=== PATIENT | female | born 1960 | race Hispanic/Latino ===

== ENCOUNTER 2017-03-07 12:34 | Day surgery (SDC) | payer MEDICARE, OTHER ==
[2017-03-01 10:40] VITALS: BMI 30.2
[2017-03-07 13:02] VITALS: O2SAT 98
[2017-03-07] MEDS ORDERED: Propofol 10 mg/ml Inj (20 ML) ONE ×2 (13:35→14:02)
[2017-03-07] MEDS ORDERED: Lidocaine 1% Inj (20ml) ONE (13:35)
[2017-03-07] MEDS ORDERED: Lactated Ringer's 1,000 ML IV SCH (14:30)
[2017-03-07 15:24] VITALS: BP 106/72; PULSE 67; RESP 16; TEMP 98
== END 2017-03-07 15:56 | disposition home or self-care (01) ==
LOC: ENDO 12:34
PROVIDERS: ATTEND Internal Medicine
DX: D12.2 Benign neoplasm of ascending colon (principal); D12.3 Benign neoplasm of transverse colon; D12.5 Benign neoplasm of sigmoid colon; K62.1 Rectal polyp; K64.8 Other hemorrhoids; K59.03 Drug induced constipation; F43.10 Post-traumatic stress disorder, unspecified; G43.909 Migraine, unspecified, not intractable, without status migrainosus; M51.26 Other intervertebral disc displacement, lumbar region; T50.905A Adverse effect of unspecified drugs, medicaments and biological substances, initial encounter
CPT/HCPCS: 45380; 45381; 45385; 88305; J2704; J7040; J7120

== ENCOUNTER 2017-04-17 14:59 | Emergency (ER) | payer MEDICARE ==
[2017-04-17 14:59] VITALS: BMI 30.2
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
[2017-04-17] MEDS ORDERED: Sodium Chloride 0.9% 1,000 ML IV STA (15:46)
[2017-04-17 16:17] LABS: ADD MANUAL DIFF? NO
[2017-04-17 16:23] LABS: BASO # 0.02 K/mm3 (0.0-2.0); BASO % 0.3 % (0.0-3.0); EOS # 0.2 (0.0-0.7); EOS % 2.5 % (1.5-5.0); GRAN # 2.61 (1.4-6.5); GRAN % 43.2 % (50.0-68.0); HEMATOCRIT 41.2 % (36.0-48.0); LYMPH # 2.8 (1.2-3.4); LYMPH % 46.4 % (22.0-35.0); MEAN CELL VOLUME 87.8 fL (80.0-105.0); MEAN CORPUSCULAR HEMOGLOBIN 30.5 pg (25.0-35.0); MEAN CORPUSCULAR HGB CONC 34.7 g/dl (31.0-37.0); MEAN PLATELET VOLUME 10.4 fl (7.0-11.0); MONO # 0.5 (0.1-0.6); MONO % 7.6 % (1.0-6.0); PLATELET COUNT 272 10^3/uL (120.0-450.0); RED CELL DISTRIBUTION WIDTH 11.6 % (11.5-14.5)
[2017-04-17 16:27] LABS: ALB/GLOB RATIO 1.4 (1.1-1.8); ALKALINE PHOSPHATASE 111 U/L (38-133); ALT/SGPT 36 U/L (7-56); AST/SGOT 36 U/L (15-39); BILIRUBIN,TOTAL 0.7 mg/dL (0.2-1.3); BLOOD UREA NITROGEN 21 mg/dL (7-21); CALCIUM 9.2 mg/dL (8.4-10.5); CARBON DIOXIDE 31 mmol/L (21-33); CHLORIDE 99 mmol/L (98-107); GFR AFRICAN-AMERICAN > 60; GLUCOSE,RANDOM 93 mg/dL (70-110); MAGNESIUM 1.9 mg/dL (1.7-2.2); POTASSIUM 3.5 mmol/L (3.6-5.0); SODIUM 138 mmol/L (132-148); TOTAL PROTEIN 6.6 g/dL (5.8-8.3)
[2017-04-17 18:13] VITALS: TEMP 98
--- NOTE | 2017-04-17 18:46 | CT ---
PROCEDURE: CT HEAD WITHOUT CONTRAST. HISTORY: worsening dizziness COMPARISON: Comparison is made to the previous study dated 05/18/2013 TECHNIQUE: Axial computed tomography images were obtained through the head/brain without intravenous contrast. Radiation dose: Total exam DLP = 725.84 mGy-cm. This CT exam was performed using one or more of the following dose reduction techniques: Automated exposure control, adjustment of the mA and/or kV according to patient size, and/or use of iterative reconstruction technique. FINDINGS: HEMORRHAGE: No intracranial hemorrhage. BRAIN: No mass effect or edema. No atrophy or chronic microvascular ischemic changes. VENTRICLES: Unremarkable. No hydrocephalus. CALVARIUM: Unremarkable. PARANASAL SINUSES: Unremarkable as visualized. No significant inflammatory changes. MASTOID AIR CELLS: Unremarkable as visualized. No inflammatory changes. OTHER FINDINGS: None. IMPRESSION: No evidence of acute intracranial hemorrhage intracranial collection mass effect or midline shift.
[2017-04-17 19:32] VITALS: BP 111/66; PULSE 74; RESP 17; O2SAT 99
--- NOTE | 2017-04-18 23:26 | CARD ---
APPROVED REPORT EKG Measurement Heart [id number] SD [id number] <Conclusion> Normal sinus rhythm Normal ECG
== END 2017-04-17 19:32 | disposition home or self-care (01) ==
LOC: ED 14:59
DX: R42 Dizziness and giddiness (principal); Z87.891 Personal history of nicotine dependence
CPT/HCPCS: 70450; 80053; 83735; 85025; 93005; 96361; 96374; 99285; J2405; J7040

== ENCOUNTER 2017-12-12 18:27 | Emergency (ER) | payer MEDICARE, OTHER ==
[2017-12-12 18:57] VITALS: BMI 27.9
[2017-12-12 19:03] VITALS: BP 116/85; PULSE 100; RESP 18; TEMP 98; O2SAT 98
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
== END 2017-12-12 22:39 | disposition home or self-care (01) ==
LOC: ED 18:27
DX: R51 Headache (principal); S16.1XXD Strain of muscle, fascia and tendon at neck level, subsequent encounter; V43.52XD Car driver injured in collision with other type car in traffic accident, subsequent encounter
CPT/HCPCS: 70450; 72125; 96372; 99284; J1885

== ENCOUNTER 2018-10-16 10:32 | Inpatient (IN) | payer MEDICARE, OTHER ==
[2018-10-16 10:43] VITALS: BMI 26.4
[2018-10-16] MEDS ORDERED: Alum-Mag Hydrox-Simethicone Susp (30 mL) PO STA (10:53)
[2018-10-16] MEDS ORDERED: Sodium Chloride 0.9% 1,000 ML IV STA ×2 (10:53→13:58)
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
[2018-10-16] MEDS ORDERED: Albuterol-Ipratrop 3 mg / 0.5 (3 ml) UD IH STA (11:16)
[2018-10-16 11:42] LABS: BASO # 0.03 K/mm3 (0.0-2.0); BASO % 0.4 % (0.0-3.0); EOS # 0.3 (0.0-0.7); EOS % 4.5 % (1.5-5.0); GRAN # 3.28 (1.4-6.5); GRAN % 47.9 % (50.0-68.0); HEMOGLOBIN 15.8 g/dL (12.0-16.0); LYMPH # 2.7 (1.2-3.4); LYMPH % 39.8 % (22.0-35.0); MEAN CELL VOLUME 91.2 fl (80.0-105.0); MEAN CORPUSCULAR HEMOGLOBIN 30.9 pg (25.0-35.0); MEAN CORPUSCULAR HGB CONC 33.9 g/dl (31.0-37.0); MEAN PLATELET VOLUME 10.8 fl (7.0-11.0); MONO # 0.5 (0.1-0.6); MONO % 7.4 % (1.0-6.0); RBC 5.11 10^6/uL (3.5-6.1); RED CELL DISTRIBUTION WIDTH 11.9 % (11.5-14.5); WHITE BLOOD COUNT 6.9 10^3/uL (4.5-11.0)
[2018-10-16 11:43] LABS: VENOUS BLOOD GAS BASE EXCESS 8.2 mmol/L (0.0-2.0); VENOUS BLOOD GAS PO2 42 mm/Hg (30-55); VENOUS BLOOD PH 7.32 (7.32-7.43)
[2018-10-16 11:53] LABS: URINE APPEARANCE SLIGHT-CLOUDY (CLEAR); URINE BILIRUBIN NEGATIVE (NEGATIVE); URINE BLOOD NEGATIVE (NEGATIVE); URINE COLOR YELLOW (YELLOW); URINE GLUCOSE (UA) NEGATIVE (NEGATIVE); URINE LEUKOCYTE ESTERASE SMALL Leu/uL (NEGATIVE); URINE PROTEIN NEGATIVE mg/dL (<30 mg/dL)
[2018-10-16 11:54] LABS: ALB/GLOB RATIO 1.4 (1.1-1.8); ALBUMIN 4.3 g/dL (3.0-4.8); ALT/SGPT 38 U/L (7-56); AST/SGOT 41 U/L (14-36); BLOOD UREA NITROGEN 22 mg/dL (7-21); CALCIUM 9.3 mg/dL (8.4-10.5); GFR NON-AFRICAN AMERICAN > 60; LIPASE 69 U/L (23-300)
[2018-10-16 11:57] LABS: INR 0.97; PARTIAL THROMBOPLASTIN TIME 30.2 Seconds (25.1-36.5); PROTHROMBIN TIME 11.2 SECONDS (9.4-12.5)
--- NOTE | 2018-10-16 12:03 | RAD ---
Date of service: 10/16/2018 HISTORY: abdominal pain r/o free air COMPARISON: 07/23/2015 FINDINGS: LUNGS: The lungs are well inflated and clear. PLEURA: No pleural effusions or pneumothorax. CARDIOVASCULAR: The heart is normal in size. No aortic atherosclerotic calcification present. OSSEOUS STRUCTURES: Within normal limits for the patient's age. VISUALIZED UPPER ABDOMEN: Normal. OTHER FINDINGS: None. IMPRESSION: No active pulmonary disease.
[2018-10-16 12:04] LABS: TROPONIN I < 0.01 ng/mL
[2018-10-16 12:10] LABS: FREE T4 1.34 ng/dL (0.78-2.19)
[2018-10-16 12:12] LABS: BARBITURATES, UR NEGATIVE (NEGATIVE); BENZODIAZEPINES, UR POSITIVE (NEGATIVE); OPIATES, UR POSITIVE (NEGATIVE); PHENCYCLIDINE, UR NEGATIVE (NEGATIVE)
[2018-10-16 12:24] LABS: URINE BACTERIA SMALL (NEG); URINE RBC 0 - 2 /hpf (0-2)
[2018-10-16 12:31] LABS: URINE HYALINE CAST 0 - 2 /hpf
[2018-10-16] MEDS ORDERED: Naloxone 0.4 mg/ml Inj (Adult) IVP STA (13:03)
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
--- NOTE | 2018-10-16 15:12 | US ---
Date of service: 14.6 10/16/2018 HISTORY: RUQ pain COMPARISON: None. TECHNIQUE: Sonographic evaluation of the abdomen. FINDINGS: LIVER: Measures 14.6 cm. Normal echogenicity of the liver parenchyma. No mass. No intrahepatic bile duct dilatation. GALLBLADDER: There are multiple gallstones. No wall thickening, pericholecystic fluid or positive sonographic Berry's sign. COMMON BILE DUCT: Measures 6.2 mm. No stones. Mild diffuse dilatation. PANCREAS: Unremarkable as visualized. No mass. No ductal dilatation. RIGHT KIDNEY: Measures 9.6cm. Normal echogenicity. No calculus, mass, or hydronephrosis. LEFT KIDNEY: Measures 10.1cm. Normal echogenicity. No calculus, mass, or hydronephrosis. SPLEEN: Normal in size and contour. No mass. AORTA: No aneurysmal dilatation. IVC: Unremarkable. OTHER FINDINGS: None. IMPRESSION: Cholelithiasis. Mild diffuse dilatation of the common bile duct without sonographic evidence for choledocholithiasis.
[2018-10-16] MEDS ORDERED: Influenza Vaccine 60 mcg/0.5 mL SYR (4YR UP) IM ONE (21:33)
[2018-10-16] MEDS ORDERED: Pneumococcal 23-Valent Vaccine IM ONE (21:33)
[2018-10-16] MEDS: Lactated Ringer's 1,000 ML IV SCH (21:35)
[2018-10-17] MEDS: Lactated Ringer's 1,000 ML IV SCH (06:07)
[2018-10-17] MEDS: Pantoprazole 40 mg EC Tab PO SCH (06:07)
[2018-10-17 07:07] LABS: BASO # 0.02 K/mm3 (0.0-2.0); BASO % 0.3 % (0.0-3.0); EOS # 0.2 (0.0-0.7); EOS % 3.8 % (1.5-5.0); GRAN # 2.58 (1.4-6.5); GRAN % 42.9 % (50.0-68.0); HEMOGLOBIN 12.5 g/dL (12.0-16.0); LYMPH # 2.8 (1.2-3.4); LYMPH % 46.4 % (22.0-35.0); MEAN CELL VOLUME 93.4 fl (80.0-105.0); MEAN CORPUSCULAR HEMOGLOBIN 29.6 pg (25.0-35.0); MEAN CORPUSCULAR HGB CONC 31.6 g/dl (31.0-37.0); MONO # 0.4 (0.1-0.6); MONO % 6.6 % (1.0-6.0); RBC 4.23 10^6/uL (3.5-6.1); RED CELL DISTRIBUTION WIDTH 12.1 % (11.5-14.5)
[2018-10-17 07:22] LABS: ALB/GLOB RATIO 1.2 (1.1-1.8); ALBUMIN 2.9 g/dL (3.0-4.8); ALT/SGPT 34 U/L (7-56); AST/SGOT 29 U/L (14-36); BLOOD UREA NITROGEN 19 mg/dL (7-21); CALCIUM 8.3 mg/dL (8.4-10.5); GFR NON-AFRICAN AMERICAN > 60
[2018-10-17] MEDS: HYDROmorphone 0.5 mg/0.5 ml ISec IVP PRN ×2 (08:12→13:51)
--- NOTE | 2018-10-17 08:48 | CP.PCM.APN ---
Subjective - Date & Time of Evaluation Date of Evaluation: 10/17/18 Time of Evaluation: 07:30 - Subjective Subjective: Pt seen and examined at bedside. C/O diffuse discomfort of abd, +pain on palpation. Denies nausea or vomiting. Objective - Vital Signs/Intake and Output Vital Signs (last 24 hours): Temp Pulse Resp BP Pulse Ox 98 F 60 20 82/52 L 92 L 10/16/18 21:50 10/16/18 21:50 10/16/18 21:50 10/16/18 21:50 10/16/18 21:50 Intake and Output: 10/17/18 10/17/18 06:59 18:59 Intake Total 480 Balance 480 - Medications Medications: Current Medications Diazepam (Valium) 10 mg PO BID PRN; Protocol PRN Reason: Anxiety Hydromorphone HCl (Dilaudid) 0.5 mg IVP Q6H PRN PRN Reason: Pain, moderate (4-7) Last Admin: 10/17/18 08:12 Dose: 0.5 mg Lactated Ringer's (Lactated Ringer's) 1,000 mls @ 115 mls/hr IV .Q8H42M NATHANAEL Last Admin: 10/17/18 06:07 Dose: Not Given Mirtazapine (Remeron) 15 mg PO HS [facility] Last Admin: 10/16/18 21:34 Dose: 15 mg Ondansetron HCl (Zofran Inj) 4 mg IVP Q4H PRN PRN Reason: Nausea/Vomiting Last Admin: 10/16/18 20:45 Dose: 4 mg Pantoprazole Sodium (Protonix Ec Tab) 40 mg PO 0600 [facility] Last Admin: 10/17/18 06:07 Dose: Not Given Zolpidem Tartrate (Ambien) 5 mg PO HS [facility]; Protocol Last Admin: 10/16/18 21:34 Dose: 5 mg - Labs Labs: 10/17/18 05:10 10/17/18 05:10 PT 11.2 SECONDS (9.4-12.5) 10/16/18 11:30 INR 0.97 10/16/18 11:30 APTT 30.2 Seconds (25.1-36.5) 10/16/18 11:30 - Constitutional Appears: Well, No Acute Distress - Head Exam Head Exam: ATRAUMATIC - Eye Exam Eye Exam: Normal appearance - ENT Exam ENT Exam: Mucous Membranes Moist, Normal Exam - Neck Exam Neck Exam: Full ROM - Respiratory Exam Respiratory Exam: Clear to Ausculation Bilateral, NORMAL BREATHING PATTERN - Cardiovascular Exam Cardiovascular Exam: REGULAR RHYTHM, +S1, +S2 - GI/Abdominal Exam Additional comments: +pain on palpation - Rectal Exam Rectal Exam: Deferred - Extremities Exam Extremities Exam: Normal Inspection - Neurological Exam Neurological Exam: Alert, Awake, Oriented x3 Assessment and Plan - Assessment and Plan (Free Text) Assessment: Pt is a 58 y.o. female with pmhx of Meniere's disease, thyroid nodules, cholelithiasis, chronic back/neck pain, PTSD, anxiety, and depression presented in ED for evaluation of abdominal pain for the past few days, feels lethargic and tired. She was seen by her PMD recently and was advised to go to emergency department for evaluation. She is admitted for cholelithiasis. Plan: Abdominal US showed cholelithiasis and mild diffuse dilatation of CBD. NPO diet Pending MRCP Pending thyroid US Surgery and Dr. Cat on consult Per Sx if MRCP is negative, will plan for possible cholecystectomy today Meds per MAR Will continue to follow
--- NOTE | 2018-10-17 11:43 | US ---
Date of service: 10/17/2018 HISTORY: nodules TECHNIQUE: Sonographic evaluation of the thyroid gland. COMPARISON: None. FINDINGS: RIGHT LOBE: Measures 1.6 x 1.8 x 4.6 cm. Normal in size, heterogeneous echo characteristics. Nodules: 1. Complex primarily solid mass midpole region right lobe measures 0.9 x 1.3 x 0.9 cm. LEFT LOBE: Measures 1.7 x 1.8 x 4.1 cm. Heterogenous echotexture, normal vascularity Nodules: 1. Cystic nodule medially adjacent to the isthmus upper pole region 2.8 x 4.2 mm. 2. Solid nodule upper pole slightly hypoechoic, hypervascular measures 1.2 x 1.9 x 1.5 cm. 3. Solid nodule isoechoic lower pole 8 x 8 x 4 mm. ISTHMUS: Measures 1.8 mm. Nodules: None OTHER FINDINGS: None . IMPRESSION: Heterogeneous gland bilaterally. Multiple (4) bilateral thyroid nodules. The most suspicious nodule resides in the left lobe upper pole measuring 1.2 x 1.9 x 1.5 cm. The mass is hypervascular. Recommendations for follow-up: 1. Radionuclide Scan to assess Thyroid function and to evaluate the thyroid for the presence of hot or cold nodules. 2. Fine needle aspiration (FNA) should also be considered as an invasive diagnostic tool in the assessment of findings described above.
--- NOTE | 2018-10-17 12:32 | MRI ---
Date of service: 10/17/2018 PROCEDURE: Magnetic Resonance Cholangiopancreatography HISTORY: COMPARISON: Comparison is made to the previous ultrasound of abdomen dated 10/16/2018 TECHNIQUE: Multiplanar, multisequence MR images of the abdomen were obtained, including heavily T2 weighted MRCP images of the biliary system. Rotating maximum intensity projection images of the biliary system were generated. FINDINGS: MRCP: The common bile duct is of slightly dilated measures up to 8 millimeter in the distal portion. No evidence of choledocholithiasis. No intrahepatic biliary ductal dilatation. LIVER: No evidence of mass lesion in the liver. GALLBLADDER: The gallbladder is partially contracted contains multiple gallstones. There is pericholecystic fluid noted. SPLEEN: Unremarkable. PANCREAS: The main pancreatic duct is slightly dilated. The pancreas is small in size. No MRI evidence of mass lesion in the pancreas. ADRENALS: Unremarkable. KIDNEYS: Unremarkable. AORTA: No aneurysm. ASCITES: None. OTHER FINDINGS: Trace bilateral pleural effusions are noted. IMPRESSION: Gallstones and trace pericholecystic fluid. Correlate clinically for cholecystitis. Slightly dilated common bile duct up to 8 millimeter without evidence of choledocholithiasis.
--- NOTE | 2018-10-17 15:08 | CP.PCM.PN ---
<Chela Oleary - Last Filed: 10/17/18 15:37> Subjective - Date & Time of Evaluation Date of Evaluation: 10/17/18 Time of Evaluation: 15:07 - Subjective Subjective: General Surgery Progress Note for Dr. Petersen Patient seen and examined at bedside this afternoon. She was informed that oscar will be done tomorrow, 10/16, in the morning due to an emergency surgery at [facility]. Per RN she was initially disappointed but was reassured later that it will be done first thing in the morning. Patient denies chest pain, SOB, nausea, vomiting. Patient is hungry and is looking forward to dinner tonight. She has not had a BM in the hospital yet and feels constipated. Abdominal pain is constantly above umbilicus and radiates to right shoulder. Objective - Vital Signs/Intake and Output Vital Signs (last 24 hours): Temp Pulse Resp BP Pulse Ox 98 F 60 20 82/52 L 92 L 10/16/18 21:50 10/16/18 21:50 10/16/18 21:50 10/16/18 21:50 10/16/18 21:50 Intake and Output: 10/17/18 10/17/18 06:59 18:59 Intake Total 480 Balance 480 - Medications Medications: Current Medications Diazepam (Valium) 10 mg PO BID PRN; Protocol PRN Reason: Anxiety Last Admin: 10/17/18 10:25 Dose: 10 mg Hydromorphone HCl (Dilaudid) 0.5 mg IVP Q6H PRN PRN Reason: Pain, moderate (4-7) Last Admin: 10/17/18 13:51 Dose: 0.5 mg Lactated Ringer's (Lactated Ringer's) 1,000 mls @ 115 mls/hr IV .[id number] [facility] Last Admin: 10/17/18 06:07 Dose: Not Given Mirtazapine (Remeron) 15 mg PO HS [facility] Last Admin: 10/16/18 21:34 Dose: 15 mg Ondansetron HCl (Zofran Inj) 4 mg IVP Q4H PRN PRN Reason: Nausea/Vomiting Last Admin: 10/16/18 20:45 Dose: 4 mg Pantoprazole Sodium (Protonix Ec Tab) 40 mg PO 0600 [facility] Last Admin: 10/17/18 06:07 Dose: Not Given Zolpidem Tartrate (Ambien) 5 mg PO HS [facility]; Protocol Last Admin: 10/16/18 21:34 Dose: 5 mg - Labs Labs: 10/17/18 05:10 10/17/18 05:10 PT 11.2 SECONDS (9.4-12.5) 10/16/18 11:30 INR 0.97 10/16/18 11:30 APTT 30.2 Seconds (25.1-36.5) 10/16/18 11:30 - Constitutional Appears: Well, Non-toxic - Head Exam Head Exam: ATRAUMATIC, NORMAL INSPECTION, NORMOCEPHALIC - Eye Exam Eye Exam: EOMI, Normal appearance - Neck Exam Neck Exam: Normal Inspection - Respiratory Exam Respiratory Exam: Clear to Ausculation Bilateral, NORMAL BREATHING PATTERN - Cardiovascular Exam Cardiovascular Exam: REGULAR RHYTHM - GI/Abdominal Exam GI & Abdominal Exam: Soft, Tenderness (diffuse TTP - RUQ, LLQ, and per iumbilical), Normal Bowel Sounds. absent: Firm, Guarding - Extremities Exam Extremities Exam: Normal Inspection - Back Exam Back Exam: NORMAL INSPECTION - Neurological Exam Neurological Exam: Alert, Awake, Oriented x3 - Skin Skin Exam: Dry, Intact, Normal Color, Warm Assessment and Plan - Assessment and Plan (Free Text) Assessment: 58F w/ symptomatic cholelithiasis - MRCP today, 10/17, negative for choledocholithiasis. CBD slightly dilated up to 8 mm. - Pain control PRN - NPO after MN for lap oscar 10/18 AM - IVF - anti-emetic PRN - replete lytes PRN - further recs per Dr. Nicola Oleary PGY1 <Artemio Petersen - Last Filed: 10/19/18 22:22> Objective - Vital Signs/Intake and Output Vital Signs (last 24 hours): Temp Pulse Resp BP Pulse Ox 98 F 65 18 120/77 97 10/19/18 14:00 10/19/18 14:00 10/19/18 14:00 10/19/18 14:00 10/19/18 14:00 - Medications Medications: Current Medications Diazepam (Valium) 10 mg PO BID PRN; Protocol PRN Reason: Anxiety Last Admin: 10/19/18 10:16 Dose: 10 mg Enoxaparin Sodium (Lovenox) 40 mg SC DAILY [facility]; Protocol Last Admin: 10/19/18 10:14 Dose: 40 mg Hydromorphone HCl (Dilaudid) 0.5 mg IVP Q6H PRN PRN Reason: Pain, moderate (4-7) Last Admin: 10/19/18 21:15 Dose: 0.5 mg Mirtazapine (Remeron) 15 mg PO HS [facility] Last Admin: 10/19/18 21:16 Dose: 15 mg Ondansetron HCl (Zofran Inj) 4 mg IVP Q4H PRN PRN Reason: Nausea/Vomiting Last Admin: 10/16/18 20:45 Dose: 4 mg Pantoprazole Sodium (Protonix Ec Tab) 40 mg PO 0600 [facility] Last Admin: 10/19/18 05:32 Dose: 40 mg Triamterene/HCTZ (Dyazide 25 Mg-37.5 Mg) 1 cap PO DAILY [facility] Last Admin: 10/19/18 15:53 Dose: Not Given Zolpidem Tartrate (Ambien) 5 mg PO HS [facility]; Protocol Last Admin: 10/19/18 21:16 Dose: 5 mg - Labs Labs: 10/19/18 07:00 10/19/18 07:00 PT 11.2 SECONDS (9.4-12.5) 10/16/18 11:30 INR 0.97 10/16/18 11:30 APTT 30.2 Seconds (25.1-36.5) 10/16/18 11:30 Attending/Attestation - Attestation I have fully participated in the care of the patient.: Yes I have reviewed all pertinent clinical information, including history, physical exam and plan: Yes Notes (Text): Pt is improving clinically OR tomorrow for Lap Cholecystectomy Consent NPO, IVF Plan d.w pt in detail
--- NOTE | 2018-10-17 18:58 | CARD ---
APPROVED REPORT Date of service: 10/17/2018 EKG Measurement Heart [id number] <Conclusion> Normal sinus rhythm Normal ECG
[2018-10-18 06:49] LABS: BASO # 0.02 K/mm3 (0.0-2.0); BASO % 0.3 % (0.0-3.0); EOS # 0.3 (0.0-0.7); EOS % 4.6 % (1.5-5.0); GRAN # 2.78 (1.4-6.5); GRAN % 41.7 % (50.0-68.0); HEMOGLOBIN 13.6 g/dL (12.0-16.0); LYMPH # 3.2 (1.2-3.4); LYMPH % 47.9 % (22.0-35.0); MEAN CELL VOLUME 90.4 fl (80.0-105.0); MEAN CORPUSCULAR HEMOGLOBIN 29.6 pg (25.0-35.0); MEAN CORPUSCULAR HGB CONC 32.7 g/dl (31.0-37.0); MEAN PLATELET VOLUME 10.8 fl (7.0-11.0); MONO # 0.4 (0.1-0.6); MONO % 5.5 % (1.0-6.0); RBC 4.6 10^6/uL (3.5-6.1); RED CELL DISTRIBUTION WIDTH 11.7 % (11.5-14.5); WHITE BLOOD COUNT 6.7 10^3/uL (4.5-11.0)
[2018-10-18] MEDS: Pantoprazole 40 mg EC Tab PO SCH (06:53)
[2018-10-18 06:56] LABS: ALB/GLOB RATIO 1.4 (1.1-1.8); ALBUMIN 3.3 g/dL (3.0-4.8); ALT/SGPT 33 U/L (7-56); AST/SGOT 28 U/L (14-36); BLOOD UREA NITROGEN 16 mg/dL (7-21); CALCIUM 8.9 mg/dL (8.4-10.5); GFR NON-AFRICAN AMERICAN > 60
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
--- NOTE | 2018-10-18 12:51 | PN ---
DATE: 10/17/2018 SUBJECTIVE: The patient was seen and examined at the bedside on 10/17/2018. Still complaining about pain in the right upper quadrant going in the back. Not happy that her surgery is postponed, but reassured her; want to eat, is on clear liquid. Discussion done with nursing staff. Reassured the patient. No fever. No chills. PHYSICAL EXAMINATION VITAL SIGNS: Temperature 98, pulse 50, respiratory rate 20, blood pressure 82/52, pulse oximetry 62. HEENT: Normocephalic, atraumatic. Eyes PERRLA. Extraocular muscles intact. Conjunctivae clear. Nose patent. NECK: Supple. No carotid bruits, JVD, or thyromegaly. CHEST: Bilaterally symmetrical. HEART: S1 and S2 positive. LUNGS: Clear to auscultation. ABDOMEN: Soft. Positive bowel sounds. No organomegaly. EXTREMITIES: No edema. No cyanosis. NEUROLOGIC: Awake and alert. Moving all four extremities. No focal deficits. MEDICATIONS: Valium, Dilaudid, lactated Ringer's, Remeron, Zofran, Protonix, Ambien. LABORATORY DATA: White blood cell 6, hemoglobin 12.5, hematocrit 39.5, platelets 233, sodium 139, potassium 4.4, BUN 19, creatinine 0.9, glucose 92. ASSESSMENT AND PLAN: Ms. Kelly Worhty is a 58-year-old female with symptomatic cholelithiasis, history of cholecystitis, magnetic resonance cholangiopancreatography done, negative for choledocholithiasis, CBD site dilated up to 8 mm, getting pain control, supposed to go for surgery, but due to certain technical problem as per nursing staff, the patient has not gone, now will go for surgery 10/18/2018 and after midnight getting liquid diet, getting antiemetic on p.r.n. basis, review MRCP, review echocardiogram, review thyroid, ultrasound, heterogeneous gland bilaterally, multiple four bilateral thyroid nodules, the most suspicious nodule resides in the left lobe upper pole measuring 1 x 1.9 x 1.5 cm. The mass is hypervascular, recommending radio nucleotide scan to assess the thyroid function to evaluate the thyroid for the presence of hot and cold nodules. Fine-needle aspiration should also be considered as invasive diagnosis tool in assessment of finding as described above. We will call Endocrinology consult with Dr. Alexis Cat and will follow up. The patient has a history of chronic back pain, getting medication from pain management, insomnia, getting Ambien. Discussion done with the patient and nursing staff. Repeat labs. We will follow up. Laila Tamayo MD
--- NOTE | 2018-10-18 13:16 | CON ---
DATE OF CONSULTATION: 10/18/2018 LOCATION: Room 560 HISTORY OF PRESENT ILLNESS: This is a 58-year-old female with known history of cholelithiasis presenting here with severe right upper quadrant pain with associated nausea, dyspepsia and vomiting and is now being referred also for evaluation of abnormal thyroid ultrasound report with bilateral thyroid nodules as noted. PAST MEDICAL HISTORY: As mentioned above, history of chronic gastritis and GERD, history of cholelithiasis and has been having episodic right upper quadrant pain over the past year or so prior to admission. History of lumbar disk disease with chronic low back pain, on narcotic analgesics as noted. History of Meniere's disease with episodic bouts of dizziness and lightheadedness. FAMILY HISTORY: Positive for diabetes and hypertension. SOCIAL HISTORY: The patient admits to nicotine use, consuming half a pack for close to 20 years at this time. No other illicit drug use. She has a very supportive family otherwise. REVIEW OF SYSTEMS: As mentioned above. Admits to generalized body weakness with episodic bouts of dizziness and lightheadedness, worse on the day of admission. Also admits to bifrontal headaches with recurrent dizziness and lightheadedness as mentioned. No chest pains or palpitations or PND since her oral intake has been variable with nausea, dyspepsia and severe right upper quadrant pain with intermittent vomiting episodes as noted. PHYSICAL EXAMINATION: GENERAL: This is an average built female in moderate painful distress. VITAL SIGNS: Blood pressure of 140/80, pulse of 70 beats per minute and regular, temperature 98, respirations 20. Height is 5 feet, weight is 195 pounds. HEENT: Head normocephalic. Eyes anicteric with pink conjunctivae. Funduscopy not possible at this time. Ears, nose and throat otherwise normal. NECK: Supple. Thyroid gland is normal size. No carotid bruits or cervical adenopathy. CARDIOPULMONARY: Some adynamic precordium. S1, S2 is rapid and regular. LUNGS: Clear to auscultation. ABDOMEN: Flat and soft with positive bowel sounds. EXTREMITIES: No peripheral edema. Pulses are +2 bilaterally. LABORATORY DATA: Her chemistry showed a BUN of 16, sodium 140, potassium 4.1, chloride 106, CO2 of 32, glucose 95, and creatinine 0.6. Her TSH is 1.29 with a free T4 of 1.34. The ultrasound showed a right lobe measuring 4.6 x 1.8 cm with a solid nodule in the right mid lobe. The left lobe measures 4.1 x 1.8 cm with a solid nodule in the upper pole measuring 1.5 x 1.9 x 1.2 cm and a cystic nodule in the upper pole measuring 2.8 mm. ASSESSMENT: This is a 58-year-old female with acute onset of severe right upper quadrant pain in the background of cholelithiasis, currently undergoing surgical evaluation at this time. She also has a known history of nodular goiter, but at this time remains clinically euthyroid and biochemically also euthyroid with normal free T4 and TSH levels as given. Moreover, she also has a multinodular goiter with bilateral solid and complex nodules, most likely related to underlying autoimmune thyroiditis. PLAN OF MANAGEMENT: We will concur and go ahead with the fine-needle aspiration biopsy of the significant solid nodules as noted to exclude any underlying dysplasia or thyroid cancer. We will also obtain a thyroglobulin panel and a thyroid peroxidase antibody to confirm and/or indicate the presence of underlying thyroid autoimmunity. We will hold off levothyroxine replacement therapy until we have an idea of the post fine-needle aspiration biopsy reports as indicated. We will obtain serial chemistries and supplement accordingly as needed. We will follow with you. Tigist Galo MD
[2018-10-18] MEDS ORDERED: Propofol 10 mg/ml Inj (20 ML) ONE (13:26)
[2018-10-18] MEDS ORDERED: Rocuronium 10 mg/ml (5 ml) ONE (13:27)
[2018-10-18] MEDS ORDERED: Midazolam 2 MG/2 ML VIAL ONE (13:27)
[2018-10-18] MEDS ORDERED: Bupivacaine 0.5% 50 ML IJ ONE (13:39)
[2018-10-18] MEDS ORDERED: Lidocaine 1% w Epi 1:100,000 Inj ONE (13:39)
[2018-10-18] MEDS ORDERED: HYDROmorphone 0.5 mg/0.5 ml ISec IVP ONE ×4 (13:45→16:14)
[2018-10-18] MEDS ORDERED: Sevoflurane - Inhalation Anesthetic Liq (250 ml) ONE (14:12)
[2018-10-18] MEDS ORDERED: Neostigmine Methylsulfate 3mg/3ml Syringe IV ONE (15:02)
[2018-10-18] MEDS ORDERED: Glycopyrrolate 0.2 mg/ml (2ml vial) ONE (15:02)
[2018-10-18] MEDS ORDERED: HYDROmorphone 0.5 mg/0.5 ml ISec IVP PRN (15:43)
--- NOTE | 2018-10-18 15:43 | PCM.SURG1 ---
Surgeon's Initial Post Op Note - Surgeon's Notes Surgeon: Dr. Petersen [employer] Principal: PGY2 Pre-Operative Diagnosis: Cholelithiasis Operative Findings: inflammed gallbladder w/ free fluid. Umbilical hernia w/ fat. for details, see op note Post-Operative Diagnosis: Acute Cholecystitis Operation Performed: 1. Laparoscopic Cholecystectomy. 2. Primary repair of umbilical hernia Specimen/Specimens Removed: 1. Gallbladder. 2. Hernia Repair with mesh Estimated Blood Loss: EBL {In ML}: 15 Blood Products Given: N/A Drains Used: No Drains Post-Op Condition: Good Date of Surgery/Procedure: 10/18/18 Time of Surgery/Procedure: 15:43
[2018-10-18] MEDS ORDERED: Lactated Ringer's 1,000 ML IV SCH (15:45)
[2018-10-18] MEDS ORDERED: HYDROmorphone 1 mg/ml ISec IVP STA (15:56)
[2018-10-18] MEDS ORDERED: HYDROmorphone 0.5 mg/0.5 ml ISec ONE (16:16)
[2018-10-19] MEDS: HYDROmorphone 0.5 mg/0.5 ml ISec IVP PRN ×4 (02:06→21:15)
--- NOTE | 2018-10-19 03:36 | PN ---
DATE: 10/18/2018 SUBJECTIVE: The patient is 58 years old female. The patient was seen and examined at the bedside on 10/18/2018, early in the morning before she has to go to surgery. She is anxious to go to surgery. She is n.p.o., still having abdominal pain. No fever, no chills. No hematuria or hematochezia. No swelling of the legs. Sometimes feeling dizzy and lightheadedness. No chest pain, palpitations, or PND. Intermittent vomiting episode. PHYSICAL EXAMINATION VITAL SIGNS: Blood pressure 140/80, pulse 70, temperature 98, respiratory rate 20. HEENT: Head is normocephalic, atraumatic. Eyes, PERRLA. Extraocular muscles intact. Conjunctivae clear. Nose patent. Mucous membranes moist. NECK: Supple. No carotid bruits. No JVD, thyromegaly. CHEST: Bilaterally symmetrical. HEART: S1, S2 positive. LUNGS: Clear to auscultation. ABDOMEN: Soft. Bowel sounds present. No organomegaly. EXTREMITIES: No edema. No cyanosis. NEUROLOGIC: The patient is awake, alert. Follows simple commands. MEDICATIONS: Ambien, Dilaudid, Lactate Ringer, Lovenox, Protonix, Remeron, Valium, and Zofran. LABORATORY DATA: White blood cell 6.4, hemoglobin 13.6, hematocrit 41.6, platelets 244. Sodium 140, potassium 4.1, BUN 16, creatinine 0.6, calcium 8.9. ASSESSMENT AND PLAN: Mrs. Zaynab Mendoza is a 58 years old lady with history of abnormal liver function test, improved with urinary tract infection. Drug screen positive for opioids, amphetamine, benzodiazepine, came with abdominal pain, has cholelithiasis, history of cholecystitis, went for surgery today by Dr. Petersen, got cholecystectomy. History of chronic back pain, history of surgery of the back, has rods in the back. Has abnormal thyroid ultrasound with bilateral thyroid nodules. History of chronic gastritis, gastroesophageal reflux disease, history of lumbar disk disease with chronic low back pain, on narcotic analgesics. History of Meniere's disease; episodes of bouts of dizziness and lightheadedness; insomnia, is on Ambien; anxiety, is on Valium by her own , pain management and her own psychiatrist. We called consult with Dr. Iraj Escoto due to thyroid nodules; according to her input that the patient needs fine needle aspiration. We will call Dr. Alexis Cat for aspiration biopsy, otherwise pain management after surgery. Repeat labs. We will follow up. Laila Tamayo MD [facility]
[2018-10-19] MEDS: Pantoprazole 40 mg EC Tab PO SCH (05:32)
[2018-10-19 07:38] LABS: HEMOGLOBIN 13.5 g/dL (12.0-16.0); MEAN CELL VOLUME 89.4 fl (80.0-105.0); MEAN CORPUSCULAR HEMOGLOBIN 29.7 pg (25.0-35.0); MEAN CORPUSCULAR HGB CONC 33.3 g/dl (31.0-37.0); MEAN PLATELET VOLUME 10.9 fl (7.0-11.0); RBC 4.54 10^6/uL (3.5-6.1); RED CELL DISTRIBUTION WIDTH 11.7 % (11.5-14.5)
[2018-10-19 08:16] LABS: BLOOD UREA NITROGEN 15 mg/dL (7-21); CALCIUM 8.5 mg/dL (8.4-10.5); GFR NON-AFRICAN AMERICAN > 60
[2018-10-19 08:23] LABS: T4 7.4 ug/dL (5.5-11.0)
--- NOTE | 2018-10-19 09:09 | CP.PCM.PN ---
Subjective - Date & Time of Evaluation Date of Evaluation: 10/19/18 Time of Evaluation: 07:15 - Subjective Subjective: General Surgery progress note for Dr. Petersen Patient seen and examined this am at bedside. SERGEYO per nursing. Patient is resting comfortably with no complaints at this time. She denies GLYNN, F/C, SOB, CO, N/V and extremity pain/weakness. She would like to be able to eat and is asking when she can go home. Objective - Vital Signs/Intake and Output Vital Signs (last 24 hours): Temp Pulse Resp BP Pulse Ox 98 F 69 20 123/80 94 L 10/19/18 07:00 10/19/18 07:00 10/19/18 07:00 10/19/18 07:00 10/19/18 07:00 Intake and Output: 10/19/18 10/19/18 06:59 18:59 Intake Total 540 Output Total 0 Balance 540 - Medications Medications: Current Medications Diazepam (Valium) 10 mg PO BID PRN; Protocol PRN Reason: Anxiety Last Admin: 10/17/18 10:25 Dose: 10 mg Enoxaparin Sodium (Lovenox) 40 mg SC DAILY [facility]; Protocol Hydromorphone HCl (Dilaudid) 0.5 mg IVP Q6H PRN PRN Reason: Pain, moderate (4-7) Last Admin: 10/19/18 02:06 Dose: 0.5 mg Mirtazapine (Remeron) 15 mg PO HS [facility] Last Admin: 10/18/18 21:19 Dose: 15 mg Ondansetron HCl (Zofran Inj) 4 mg IVP Q4H PRN PRN Reason: Nausea/Vomiting Last Admin: 10/16/18 20:45 Dose: 4 mg Pantoprazole Sodium (Protonix Ec Tab) 40 mg PO 0600 [facility] Last Admin: 10/19/18 05:32 Dose: 40 mg Zolpidem Tartrate (Ambien) 5 mg PO HS [facility]; Protocol Last Admin: 10/18/18 21:19 Dose: 5 mg - Labs Labs: 10/19/18 07:00 10/19/18 07:00 PT 11.2 SECONDS (9.4-12.5) 10/16/18 11:30 INR 0.97 10/16/18 11:30 APTT 30.2 Seconds (25.1-36.5) 10/16/18 11:30 - Constitutional Appears: Well, Non-toxic, No Acute Distress - Head Exam Head Exam: ATRAUMATIC, NORMOCEPHALIC - Eye Exam Eye Exam: EOMI - ENT Exam ENT Exam: Mucous Membranes Moist - Respiratory Exam Respiratory Exam: NORMAL BREATHING PATTERN - Cardiovascular Exam Cardiovascular Exam: REGULAR RHYTHM - GI/Abdominal Exam GI & Abdominal Exam: Soft, Tenderness (mild appropriate incisional tenderness). absent: Distended, Guarding Additional comments: operative dressings cdi, no strikethrough/ drainage - Extremities Exam Extremities Exam: absent: Calf Tenderness, Pedal Edema - Neurological Exam Neurological Exam: Alert, Awake, Oriented x3 - Psychiatric Exam Psychiatric exam: Normal Affect, Normal Mood Assessment and Plan - Assessment and Plan (Free Text) Assessment: 58 F s/p laparoscopic Cholecystectomy, POD 1 Plan: Tolerating diet no N/V continue IS use and encourage ambulation patient will follow up with Dr. Petersen in his office in 5-7 days Clear for D/C from surgical standpoint Discussed with Dr. Nicola Carballo, PGY 1
[2018-10-19] MEDS: Enoxaparin 40 mg Syringe SC SCH (10:14)
--- NOTE | 2018-10-19 13:17 | PN ---
DATE: 10/19/2018 ENDO FOLLOWUP NOTE LOCATION: Room 560. SUBJECTIVE: This is a 58-year-old female who presented here with severe right upper quadrant pain and evaluated to have acute cholecystitis on the background of known history of cholelithiasis and underwent a laparoscopic cholecystectomy procedure yesterday as noted. She continues to have incisional pain as noted today and is receiving analgesic therapy as given. She is also being referred for evaluation of an underlying nodular goiter with bilateral thyroid nodules as noted. She remains clinically and biochemically euthyroid at this time. Her chemistry showed BUN of 15, sodium 141, potassium 3.6, chloride 108, CO2 of 31, glucose 106 and creatinine 0.5. Her thyroid study showed a T4 or thyroxine of 7.4 with a TSH of 0.55. The initial level was 1.29. This is indicative of the so-called acute sick euthyroid syndrome, but otherwise she is metabolically euthyroid as noted. ASSESSMENT: This is a 58-year-old female with acute cholecystitis who underwent laparoscopic cholecystectomy for underlying cholelithiasis yesterday and is improving clinically and hemodynamically as noted thereof. She also has a multinodular goiter with bilateral thyroid nodules consisting of both a combination of complex and solid mass lesions bilaterally as confirmed by a thyroid ultrasonography. She admits to occasional compressive neck symptoms with slight dysphagia or odynophagia episodically as noted. Plan of management as discussed lengthily with the patient at bedside. The imperative need to undergo a fine-needle aspiration biopsy of the solid nodules will be undertaken and she is actually scheduled for possible FNA biopsy tomorrow as indicated. This will elucidate the nature of whether we are dealing with benign thyroid nodules and/or suspicious lesions with dysplasia and/or malignancy and this will determine whether she goes for surgical resection or remains with medical therapy for conservative management. The therapeutic options were discussed with the patient also at bedside. We will obtain serial chemistries and serial thyroid studies accordingly. Tigist Galo MD
[2018-10-19] MEDS: hydroCHLOROthiazide-Triamterene 25 mg-37.5 mg Cap UD PO SCH (15:53)
--- NOTE | 2018-10-20 01:46 | PN ---
DATE: 10/19/2018 SUBJECTIVE: The patient is a 58-year-old female. The patient was seen and examined on 10/19/2018, complaining about abdominal pain, eating food and tolerating. No fever. No chills. No nausea, vomiting, diarrhea. No hematuria or hematochezia. No headache. No dizziness. No chest pain. No palpitation. PHYSICAL EXAMINATION VITAL SIGNS: Temperature 98.0, pulse 59, respiratory rate 20, blood pressure 123/80, pulse oximetry 94. HEENT: Head: Normocephalic, atraumatic. Eyes: PERRLA. Extraocular muscles are intact. Conjunctivae clear. Nose patent. Mucous membranes moist. NECK: Supple. No carotid bruit. No JVD or thyromegaly. CHEST: Bilaterally symmetrical. HEART: S1 and S2 positive. LUNGS: Clear to auscultation. ABDOMEN: Soft. Bowel sounds present. No organomegaly. EXTREMITIES: No edema. No cyanosis. NEUROLOGIC: The patient is awake and alert. Moving all 4 extremities. No focal deficit. MEDICATIONS: Valium, Lovenox, Dilaudid, Remeron, Zofran, Protonix, Ambien. LABORATORY DATA: White blood cells 7.0, hemoglobin 13.5, hematocrit 40.6, platelets 231. Sodium 141, potassium 3.6, BUN 15, creatinine 0.5, glucose 106. ASSESSMENT AND PLAN: Ms. Kelly Worthy is a 58-year-old lady with hyperchloremia, status post laparoscopic cholecystectomy, postoperative day 1; chronic anxiety. No nausea, vomiting. Currently tolerating ambulation. History of thyroid nodules; spoke to Dr. Alexis Cat. We will do biopsy of the thyroid nodules tomorrow, Saturday. Has multinodular goiter with bilateral thyroid nodules consisting of both the combination of complex and solid masses, lesions bilaterally as confirmed by thyroid ultrasound. She admits to occasional compressive neck symptoms with slight dysphagia or odynophagia episodically as noted. Discussion done with the patient's nursing staff. Has history of back pain, chronic pain syndrome, getting pain management; insomnia, getting Ambien; anxiety, getting Valium. Repeat labs. We will follow up. Laila Tamayo MD MTDJaspreet
[2018-10-20] MEDS: Pantoprazole 40 mg EC Tab PO SCH (05:08)
--- NOTE | 2018-10-20 05:17 | OP ---
PROCEDURE DATE: 10/19/2018 PREOPERATIVE DIAGNOSES: 1. Cholelithiasis with possible chronic cholecystitis. 2. Abdominal pain. 3. Dilated common bile duct. POSTOPERATIVE DIAGNOSES: 1. Acute on chronic cholecystitis with cholelithiasis. 2. Extensive perihepatic and pericholecystic fluid collection. 3. Extensive peritoneal adhesions in the right upper quadrant. 4. Dilated common bile duct. 5. Umbilical hernia 1 x 1 cm size. PROCEDURES DONE: 1. Laparoscopic cholecystectomy. 2. Laparoscopic drainage of perihepatic and pericholecystic multiple fluid collections. 3. Laparoscopic extensive enterolysis and lysis of adhesions. 4. Open umbilical hernia repair without mesh primary closure. SURGEON: Artemio Petersen MD CARDIAC CARE NURSE: Antonio Nunez DO, PGY-2 resident ANESTHESIA: General endotracheal tube anesthesia. ESTIMATED BLOOD LOSS: Around 10 mL. DRAINS: None. PATHOLOGY: 1. Gallbladder with gallstones was sent for the pathology. 2. Umbilical hernial sac and content. COMPLICATIONS: None. INTRAOPERATIVE FINDINGS: The patient had acute on chronic cholecystitis with extensive perihepatic and pericholecystic fluid collection with omental on the duodenal as well as colonic attachments to the right upper quadrant as well as to the gallbladder and extensive enterolysis, and lysis of adhesions was done. The patient also had a very small 1 x 1 cm umbilical hernia. The hernial sac and content were sent for the pathology. DESCRIPTION OF PROCEDURE: On intraoperative steps, this is a 58-year-old female who was diagnosed with dilated CBD, and the patient underwent MRCP with a history of known choledocholithiasis. The patient was consented for the laparoscopic cholecystectomy, possible open. Brought to the OR, placed supine on the operating table. After induction of the anesthesia, the abdomen was prepped and draped in the usual sterile fashion. A supraumbilical transverse incision was made. After incising skin and subcutaneous tissue and the fascia, the Kim port was placed and pneumo was created. Another 12-mm port was placed in the midline below costal margin, and two 5 mm ports were placed in the right upper quadrant. Grasper and dissector were introduced. The patient was found to have extensive fluid collection in the perihepatic and pericholecystic areas, and suctioning of the all collection was done. The patient had omental as well as colonic and duodenal adhesions to the gallbladder. First, extensive enterolysis and lysis of adhesion was done to separate the gallbladder from the surrounding structures, and gallbladder was retracted cranially dilated CBD. The cystic duct and cystic artery were identified. A critical view of the safety was also done. The cystic duct and cystic artery were clipped at three places and cut in between two clips nearby gallbladder, and the gallbladder was dissected free from the gallbladder fossa, taken in an EndoCatch bag, taken out through the umbilical port site and sent off the table for the pathology. The suction irrigation of the gallbladder fossa as well as the perihepatic area was done to compete the drain all the fluid collection and after proper hemostasis, all the ports were taken out under vision. Pneumo was deflated. Now, the umbilical site appeared to have umbilical hernia, and hernia content was dissected and sent off the table for pathology. The hernial defect was closed with 0 Prolene interrupted multiple sutures. The hernial defect was closed. All the port sites were closed in two layers, subcutaneous with 2-0 Vicryl and skin with a 4-0 Monocryl. A dry sterile dressing was applied. The patient tolerated the procedure well. Count of instrument and gauze was correct. There was no apparent complication. The patient was extubated in OR and sent to postanesthesia care unit in stable condition. Artemio Petersen MD
[2018-10-20 06:13] VITALS: TEMP 98.5
--- NOTE | 2018-10-20 08:18 | CP.PCM.PN ---
Subjective - Date & Time of Evaluation Date of Evaluation: 10/20/18 Time of Evaluation: 08:15 - Subjective Subjective: Surgery Progress note- Dr. Vaz Patient seen and examined at bedside. complaining of kisha-incisional umbilical pain that is improved from yesterday. Tolerating diet. Denies N/V/F/C. + OOB and ambulating. Dressing sites clean, dry, intact Objective - Vital Signs/Intake and Output Vital Signs (last 24 hours): Temp Pulse Resp BP Pulse Ox 98.5 F 87 18 120/80 95 10/20/18 06:12 10/20/18 06:12 10/20/18 06:12 10/20/18 06:12 10/20/18 06:12 Intake and Output: 10/20/18 10/20/18 06:59 18:59 Intake Total 340 Balance 340 - Medications Medications: Current Medications Diazepam (Valium) 10 mg PO BID PRN; Protocol PRN Reason: Anxiety Last Admin: 10/19/18 10:16 Dose: 10 mg Enoxaparin Sodium (Lovenox) 40 mg SC DAILY [facility]; Protocol Last Admin: 10/19/18 10:14 Dose: 40 mg Hydromorphone HCl (Dilaudid) 0.5 mg IVP Q6H PRN PRN Reason: Pain, moderate (4-7) Last Admin: 10/19/18 21:15 Dose: 0.5 mg Mirtazapine (Remeron) 15 mg PO HS [facility] Last Admin: 10/19/18 21:16 Dose: 15 mg Ondansetron HCl (Zofran Inj) 4 mg IVP Q4H PRN PRN Reason: Nausea/Vomiting Last Admin: 10/16/18 20:45 Dose: 4 mg Pantoprazole Sodium (Protonix Ec Tab) 40 mg PO 0600 [facility] Last Admin: 10/20/18 05:08 Dose: 40 mg Triamterene/HCTZ (Dyazide 25 Mg-37.5 Mg) 1 cap PO DAILY [facility] Last Admin: 10/19/18 15:53 Dose: Not Given Zolpidem Tartrate (Ambien) 5 mg PO HS [facility]; Protocol Last Admin: 10/19/18 21:16 Dose: 5 mg - Labs Labs: 10/19/18 07:00 10/19/18 07:00 PT 11.2 SECONDS (9.4-12.5) 10/16/18 11:30 INR 0.97 10/16/18 11:30 APTT 30.2 Seconds (25.1-36.5) 10/16/18 11:30 - Constitutional Appears: Non-toxic, No Acute Distress - Head Exam Head Exam: ATRAUMATIC - Eye Exam Eye Exam: EOMI. absent: Scleral icterus - ENT Exam ENT Exam: Mucous Membranes Moist - Respiratory Exam Respiratory Exam: NORMAL BREATHING PATTERN. absent: Accessory Muscle Use, Respiratory Distress - Cardiovascular Exam Cardiovascular Exam: REGULAR RHYTHM, +S1, +S2. absent: Bradycardia, Tachycardia - GI/Abdominal Exam GI & Abdominal Exam: Soft, Tenderness (umbilical kisha-incisional). absent: Distended, Firm, Guarding, Rigid - Extremities Exam Extremities Exam: absent: Calf Tenderness - Neurological Exam Neurological Exam: Alert, Awake, Oriented x3 - Psychiatric Exam Psychiatric exam: Normal Affect - Skin Skin Exam: Intact, Warm Assessment and Plan - Assessment and Plan (Free Text) Assessment: 58F s/p Lap oscar POD#2 Plan: - diet as tolerated - po analgesia - encourage oob and ambulation - follow up w/ Dr. Petersen in clinic in 1 week - cleared for discharge from a surgical standpoint - discussed w/ Dr. Petersen surgical attending [employer] [id number]
--- NOTE | 2018-10-20 09:49 | CP.PCM.APN ---
Subjective - Date & Time of Evaluation Date of Evaluation: 10/20/18 Time of Evaluation: 07:50 - Subjective Subjective: Pt seen and examined at bedside. C/O generalized abdominal pain, but better. Surgical sites in abd with dressing, c/d/i. Stated that she moved her bowel yesterday. In no acute distress. Objective - Vital Signs/Intake and Output Vital Signs (last 24 hours): Temp Pulse Resp BP Pulse Ox 98.5 F 87 18 120/80 95 10/20/18 06:12 10/20/18 06:12 10/20/18 06:12 10/20/18 06:12 10/20/18 06:12 Intake and Output: 10/20/18 10/20/18 06:59 18:59 Intake Total 340 Balance 340 - Medications Medications: Current Medications Diazepam (Valium) 10 mg PO BID PRN; Protocol PRN Reason: Anxiety Last Admin: 10/19/18 10:16 Dose: 10 mg Enoxaparin Sodium (Lovenox) 40 mg SC DAILY [facility]; Protocol Last Admin: 10/19/18 10:14 Dose: 40 mg Hydromorphone HCl (Dilaudid) 0.5 mg IVP Q6H PRN PRN Reason: Pain, moderate (4-7) Last Admin: 10/19/18 21:15 Dose: 0.5 mg Mirtazapine (Remeron) 15 mg PO HS [facility] Last Admin: 10/19/18 21:16 Dose: 15 mg Ondansetron HCl (Zofran Inj) 4 mg IVP Q4H PRN PRN Reason: Nausea/Vomiting Last Admin: 10/16/18 20:45 Dose: 4 mg Pantoprazole Sodium (Protonix Ec Tab) 40 mg PO 0600 [facility] Last Admin: 10/20/18 05:08 Dose: 40 mg Triamterene/HCTZ (Dyazide 25 Mg-37.5 Mg) 1 cap PO DAILY [facility] Last Admin: 10/19/18 15:53 Dose: Not Given Zolpidem Tartrate (Ambien) 5 mg PO HS [facility]; Protocol Last Admin: 10/19/18 21:16 Dose: 5 mg - Labs Labs: 10/19/18 07:00 10/19/18 07:00 PT 11.2 SECONDS (9.4-12.5) 10/16/18 11:30 INR 0.97 10/16/18 11:30 APTT 30.2 Seconds (25.1-36.5) 10/16/18 11:30 - Constitutional Appears: Well, No Acute Distress - Head Exam Head Exam: ATRAUMATIC - Eye Exam Eye Exam: Normal appearance - ENT Exam ENT Exam: Mucous Membranes Moist - Neck Exam Neck Exam: Full ROM - Respiratory Exam Respiratory Exam: Clear to Ausculation Bilateral, NORMAL BREATHING PATTERN - Cardiovascular Exam Cardiovascular Exam: REGULAR RHYTHM, +S1, +S2 - GI/Abdominal Exam GI & Abdominal Exam: Soft, Normal Bowel Sounds Additional comments: +mild discomfort on palpation - Rectal Exam Rectal Exam: Deferred - Extremities Exam Extremities Exam: Normal Inspection - Back Exam Back Exam: NORMAL INSPECTION - Neurological Exam Neurological Exam: Alert, Awake, Oriented x3 Assessment and Plan - Assessment and Plan (Free Text) Assessment: Pt is a 58 y.o. female admitted for cholelithiasis. She is S/P lap oscar, lap drainage of perihepatic & pericholecystic multiple fluid collection, lap extensive enterolysis & lysis of adhesions, and open umbilical hernia repair w/o mesh on 10/19. Plan: Surgery cleared pt for discharge Possible biopsy of thyroid nodules today. Per PMD, if pt stable after procedure, can be discharged home today. Meds per MAR Will continue to follow
[2018-10-20] MEDS: HYDROmorphone 0.5 mg/0.5 ml ISec IVP PRN (09:58)
[2018-10-20] MEDS: hydroCHLOROthiazide-Triamterene 25 mg-37.5 mg Cap UD PO SCH (09:58)
[2018-10-20] MEDS: Enoxaparin 40 mg Syringe SC SCH (10:01)
[2018-10-20] MEDS ORDERED: Midazolam 2 MG/2 ML VIAL ONE (14:35)
[2018-10-20] MEDS ORDERED: Lidocaine 1% Inj (20ml) ONE (14:35)
[2018-10-20] MEDS ORDERED: Midazolam 2 MG/2 ML VIAL IVP ONE (16:10)
[2018-10-20] MEDS ORDERED: Sodium Chloride 0.45% 1,000 ML IV SCH (16:15)
[2018-10-20 16:37] VITALS: RESP 16
[2018-10-20 16:57] VITALS: BP 103/68; PULSE 66; O2SAT 96
--- NOTE | 2018-10-20 18:51 | PN ---
DATE: 10/20/2018 ENDO FOLLOWUP NOTE LOCATION: In room 560. This is a 58-year-old female, who underwent a recent laparoscopic as she presented here with severe right upper quadrant pain related to acute cholecystitis and is also now being followed closely for metabolic management. She has also a underlying multinodular goiter with bilateral thyroid nodules, although remains clinically and biochemically euthyroid at this time. Her latest thyroid study showed a T4 of 7.4 with a TSH of 0.55 and a free T4 of 1.34. Her chemistry showed a BUN of 15, sodium 141, potassium 3.6, chloride 108, CO2 of 31, glucose 106 and creatinine 0.5. Her thyroid ultrasound confirmed the presence of bilateral thyroid nodules which are both mix of complex nodules and solid nodules noted bilaterally. She has been scheduled for a possible fine-needle aspiration biopsy of the nodules today, but apparently has yet to go as noted. We will hold off any kind of levothyroxine suppressive therapy as she remains biochemically and clinically euthyroid at this time. The implications of an abnormal fine-needle aspiration biopsy have been discussed with the patient as most thyroid nodules are benign, but if there is any suspicious lesions or any dysplasia or malignancy then she will have to go for a near total or total thyroidectomy as indicated. We will obtain serial chemistries and supplement accordingly as needed. We will follow. Tigist Galo MD
--- NOTE | 2018-10-20 19:47 | US ---
PROCEDURE: Ultrasound-guided left thyroid fine needle aspiration biopsy. CLINICAL HISTORY: Bilateral thyroid nodules. Dominant hypervascular 1.8 cm left thyroid nodule. Evaluate for malignancy PHYSICIAN(S): Alexis Cat M.D. TECHNIQUE: The relative risks and indications for the procedure were explained to the patient and consent obtained. The patient was placed supine on the stretcher with the neck extended and preliminary sonography of the thyroid performed. This reveal 1.8 cm hypoechoic nodule which is hypervascular in the mid left thyroid a slightly smaller nodule is noted on the right which is not vascular. The neck was prepped and draped in the usual sterile fashion. Conscious sedation and monitoring were provided throughout the procedure by a nurse. 1% Xylocaine was used to anesthetize the skin and soft tissues at the access site. Three passes with a 22-gauge needle were performed under ultrasound guidance for fine needle aspiration of the 1.8 cm hypervascular nodule in the left thyroid. the slides were reviewed by pathology and deemed adequate. The patient tolerated the procedure well. IMPRESSION: 1. Ultrasound guided fine needle aspiration of a 1.8 cm hypervascular nodule in the left thyroid
[2018-10-20 20:38] LABS: THYROGLOBULIN 7.1 ng/mL (2.8-40.9)
== END 2018-10-20 19:51 | disposition home or self-care (01) | DRG 419 ==
LOC: ED 10:32 → ERH 14:13 → 5RNO 16:57
PROVIDERS: ADMIT Internal Medicine; ATTEND Internal Medicine
PROC: 0DN94ZZ Release Duodenum, Percutaneous Endoscopic Approach (ICD-10-PCS; 2018-10-18)
PROC: 0DNE4ZZ Release Large Intestine, Percutaneous Endoscopic Approach (ICD-10-PCS; 2018-10-18)
PROC: 0WQF0ZZ Repair Abdominal Wall, Open Approach (ICD-10-PCS; 2018-10-18)
PROC: 0FT44ZZ Resection of Gallbladder, Percutaneous Endoscopic Approach (ICD-10-PCS; principal; 2018-10-18 12:00)
PROC: 0G9G3ZX Drainage of Left Thyroid Gland Lobe, Percutaneous Approach, Diagnostic (ICD-10-PCS; 2018-10-20)
PROC: BW4FZZZ Ultrasonography of Neck (ICD-10-PCS; 2018-10-20)
DX: K80.12 Calculus of gallbladder with acute and chronic cholecystitis without obstruction (principal); Z72.0 Tobacco use; E04.2 Nontoxic multinodular goiter; E07.81 Sick-euthyroid syndrome; E11.9 Type 2 diabetes mellitus without complications; E87.8 Other disorders of electrolyte and fluid balance, not elsewhere classified; E89.0 Postprocedural hypothyroidism; F43.10 Post-traumatic stress disorder, unspecified; F90.9 Attention-deficit hyperactivity disorder, unspecified type; G89.4 Chronic pain syndrome; H81.09 Meniere's disease, unspecified ear; Z82.49 Family history of ischemic heart disease and other diseases of the circulatory system; J45.909 Unspecified asthma, uncomplicated; K21.9 Gastro-esophageal reflux disease without esophagitis; K42.9 Umbilical hernia without obstruction or gangrene; K59.00 Constipation, unspecified; K66.0 Peritoneal adhesions (postprocedural) (postinfection); K82.8 Other specified diseases of gallbladder; Z62.810 Personal history of physical and sexual abuse in childhood; Z79.891 Long term (current) use of opiate analgesic; Z88.2 Allergy status to sulfonamides